=== PATIENT | female | born 1950 ===

== ENCOUNTER 2016-08-26 10:02 | Day surgery (SDC) | payer OTHER ==
[~2016-08-26 10:02] MED LIST: BUPIVACAINE 0.5% 30 ML SDV ONE; VANCOMYCIN 1 GM in NS 250 ML IV ONE
[2016-08-26] MEDS ORDERED: LIDOCAINE 1% 5 ML SDV ONE (10:28)
[2016-08-26] MEDS ORDERED: PROPOFOL/EMULSION 500 MG/50 ML BOTTLE IV ONE ×3 (11:39→12:56)
[2016-08-26] MEDS ORDERED: fentaNYL 100 MCG/2 ML INJ ONE ×2 (11:39→13:41)
[2016-08-26] MEDS ORDERED: KETOROLAC 30 MG/1 ML SDV ONE (13:42)
--- NOTE | 2016-08-26 13:47 | GOP ---
[f rep st] OPERATIVE REPORT DATE OF OPERATION: 08/26/2016 SURGEON: Kirsten Falk MD BUFFET MANAGER: Jessenia Redman, PAC. ANESTHESIOLOGIST: Jay Lam MD. 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 PROCEDURE PERFORMED: Wide local excision. FINDINGS: Healthy tissue. 18 x 8 x2 cm. SPECIMENS: Skin, soft tissue, and muscle. Short superior, long anterior. ESTIMATED BLOOD LOSS: 20 cc. INDICATIONS: The patient is a 66-year-old woman, who had a mass removed from her thigh. It was foun d to be a poorly differentiated spindle cell lesion. I performed a wide local excision. Unfortunate ly, the margins were very close. She had an MRI which did not show any other areas of concern. DESCRIPTION OF PROCEDURE: The patient was brought into the operating room, placed supine on the [facility] e, and general anesthesia was administered. She was then placed in the prone position. Her right th igh was prepped and draped in the usual sterile fashion. I made an ellipse around her previous scar, with at least 1 cm margins in each direction. I dissected down. I divided the fascia. I took appr oximately 1 cm of muscle posteriorly. This was marked short superior, long anterior. Hemostasis was achieved in the muscle bed. I closed the fascia with 2-0 Vicryl. I closed the deep layer with 2-0 Vicryl. I closed skin with 2-0 nylon. 30 cc of 0.5% Marcaine was used to infiltrate the tissues. A silver impregnated dressing was applied. She was placed back in the supine position, awakened in e operating room, extubated, transferred to PACU in stable condition. /[id number]/MODL
== END 2016-08-26 16:15 | disposition home or self-care (01) ==
LOC: FSGY 10:02
PROVIDERS: ATTEND Surgery
PROC: 0KB Muscles, Excision (ICD-10-PCS; principal; 2016-08-26 11:45)
DX: C49.21 Malignant neoplasm of connective and soft tissue of right lower limb, including hip (principal); Z80.0 Family history of malignant neoplasm of digestive organs; Z80.8 Family history of malignant neoplasm of other organs or systems
CPT/HCPCS: J1885; J2704; J3010; J3370